=== PATIENT | male | born 1950 | race Caucasian/White ===

== ENCOUNTER 2017-05-01 12:20 | Emergency (ER) | payer OTHER ==
[2017-05-01 12:30] VITALS: BP 136/89
[2017-05-01] MEDS ORDERED: BUFFERED LIDOCAINE 10 ML SYRINGE ONE (13:09)
--- NOTE | 2017-05-01 13:15 | ED Physician Documentation ---
PD HPI UPPER EXT INJURY - Stated complaint Stated Complaint: L INDEX FINGER LAC - Chief complaint Chief Complaint: Ext Problem - History obtained from History obtained from: Patient - History of Present Illness Location: Left (66-year-old gentleman, up-to-date on tetanus, left-handed. Pinched his finger with a laceration on some wood just prior to arrival in a near fall at home. No other injuries.) Review of Systems Constitutional: reports: Reviewed and negative Throat: reports: Reviewed and negative Cardiac: reports: Reviewed and negative PD PAST MEDICAL HISTORY - Past Medical History Cardiovascular: Hypertension, High cholesterol GI: GERD : Retention Psych: Depression - Past Surgical History Past Surgical History: Yes - Present Medications Home Medications: Ambulatory Orders Medication Instructions Recorded Confirmed Gabapentin [Neurontin] 10 tab PO DAILY 08/24/15 05/01/17 Levothyroxine [Synthroid] 75 mcg PO DAILY 08/24/15 05/01/17 Lisinopril 1 tab PO DAILY 08/24/15 05/01/17 Pantoprazole [Protonix] 1 tab PO BID 08/24/15 05/01/17 Simvastatin 1 tab PO DAILY 08/24/15 05/01/17 Tamsulosin [Flomax] 1 tab PO DAILY 08/24/15 05/01/17 Venlafaxine [Effexor] 37.5 mg PO DAILY 08/24/15 05/01/17 predniSONE [Deltasone] 40 mg PO DAILY 5 Days 08/24/15 05/01/17 - Allergies Allergies/Adverse Reactions: Allergies Allergy/AdvReac Type Severity Reaction Status Date / Time codeine Allergy Rash Verified 08/24/15 10:40 ibuprofen Allergy Edema Verified 08/24/15 10:40 - Social History Does the pt smoke?: No Smoking Status: Never smoker Does the pt drink ETOH?: Yes Does the pt have substance abuse?: No - Immunizations Immunizations are current?: Yes PD ED PE NORMAL - Vitals Vital signs reviewed: Yes - General General: Alert and oriented X 3, No acute distress - Neck Neck: Supple, no meningeal sign, No bony TTP - Extremities Extremities: Other (1.5 cm semicircular laceration on the radial side of the left second digit at the level of the DIP without underlying bony tenderness, limited range of motion, tendon injury, or neurovascular compromise.) - Neuro Neuro: Alert and oriented X 3, Normal speech - Psych Psych: Normal mood, Normal affect Results - Vitals Vitals: Vital Signs - 24 hr 05/01/17 12:28 Temperature 36.2 C L Heart Rate 74 Respiratory 16 Rate Blood Pressure 136/89 H O2 Saturation 96 Oxygen O2 Source Room air Procedures - Laceration (location) L 2nd finger Length in cm: 1.5 Wound type: Curved, Flap, Superficial, Into subcut fat Neurovascular status: Sensory intact, Motor intact, Vascular intact Anesthesia: Lidocaine 1%, With bicarb (digital block with excellent anesthesia) Wound Preparation: Irrigated copiously NS Skin layer closure: Nylon, Interrupted, Size #-0 - enter number (5-0), Sutures - enter # (5) Other: Patient tolerated well, Tetanus UTD Complexity: Simple Departure - Departure Disposition: 01 Home, Self Care Clinical Impression: Finger laceration Qualifiers: Encounter type: initial encounter Qualified Code(s): S61.219A - Laceration without foreign body of unspecified finger without damage to nail, initial encounter Condition: Good Record reviewed to determine appropriate education?: Yes Instructions: ED Laceration Hand Comments: Wash the wound briefly but in general keep it dry and covered. Come back for any signs of infection which would include: Redness, swelling, drainage, increased pain, or fevers. Followup with your doctor in 10-14 days for suture removal. Your blood pressure was elevated today on check in to the emergency department. This does not mean that you have hypertension, it is a common phenomenon to check into the emergency department and have elevated blood pressure. I recommend that you see your primary care physician within the week to have it rechecked when you're feeling better.
== END 2017-05-01 13:45 | disposition home or self-care (01) ==
LOC: ED 12:20
DX: S61.211A Laceration without foreign body of left index finger without damage to nail, initial encounter (principal); W45.8XXA Other foreign body or object entering through skin, initial encounter; Y92.009 Unspecified place in unspecified non-institutional (private) residence as the place of occurrence of the external cause; I10 Essential (primary) hypertension
CPT/HCPCS: 12001; 99282; 99283

== ENCOUNTER 2018-01-28 11:31 | Emergency (ER) | payer OTHER ==
--- NOTE | 2018-01-28 12:38 | ED Physician Documentation ---
History of Present Illness - Stated complaint Stated Complaint: RT WRIST LAC/LT ANKLE PX/FELL OFF LADDER - Chief complaint Chief Complaint: Ext Problem - History obtained from History obtained from: Patient - History of Present Illness Timing: Today Improved by: rest Worsened by: movement - Additonal information Additional information: Patient is a 67 yo M with a history of vertigo, was on a ladder today, felt vertiginous and fell off the ladder. Landed on L ankle and rolled onto the R side. Complains of L ankle pain. no LOC. no head injury. no neck or back pain. he also has a laceration to the right wrist. Mild discomfort to the right wrist as well. He also has an abrasion to the left elbow. Review of Systems Ten Systems: 10 systems reviewed and negative Constitutional: denies: Fever, Chills Ears: denies: Ear pain Nose: denies: Rhinorrhea / runny nose, Congestion Throat: denies: Sore throat Cardiac: denies: Chest pain / pressure Respiratory: denies: Cough GI: denies: Abdominal Pain, Nausea, Vomiting, Diarrhea Skin: denies: Rash Musculoskeletal: denies: Neck pain, Back pain Neurologic: denies: Focal weakness, Numbness, Headache PD PAST MEDICAL HISTORY - Past Medical History Past Medical History: Yes Cardiovascular: Hypertension, High cholesterol GI: GERD : Retention Psych: Depression - Past Surgical History Past Surgical History: Yes - Present Medications Home Medications: Ambulatory Orders Medication Instructions Recorded Confirmed Gabapentin [Neurontin] 10 tab PO DAILY 08/24/15 05/01/17 Levothyroxine [Synthroid] 75 mcg PO DAILY 08/24/15 05/01/17 Lisinopril 1 tab PO DAILY 08/24/15 05/01/17 Pantoprazole [Protonix] 1 tab PO BID 08/24/15 05/01/17 Simvastatin 1 tab PO DAILY 08/24/15 05/01/17 Tamsulosin [Flomax] 1 tab PO DAILY 08/24/15 05/01/17 Venlafaxine [Effexor] 37.5 mg PO DAILY 08/24/15 05/01/17 predniSONE [Deltasone] 40 mg PO DAILY 5 Days tablet 08/24/15 05/01/17 Oxycodone HCl/Acetaminophen 1 - 2 each PO Q6H PRN #20 tablet 01/28/18 [Percocet 5-325 mg Tablet] - Allergies Allergies/Adverse Reactions: Allergies Allergy/AdvReac Type Severity Reaction Status Date / Time codeine Allergy Rash Verified 08/24/15 10:40 ibuprofen Allergy Edema Verified 08/24/15 10:40 - Social History Does the pt smoke?: No Smoking Status: Never smoker Does the pt drink ETOH?: Yes Does the pt have substance abuse?: No - Immunizations Immunizations are current?: Yes Immunizations: TDAP current <10years PD ED PE NORMAL - Vitals Vital signs reviewed: Yes - General General: Alert and oriented X 3, No acute distress - HEENT HEENT: PERRL, Ears normal, Moist mucous membranes, Pharynx benign - Neck Neck: Supple, no meningeal sign, No bony TTP - Cardiac Cardiac: RRR, Strong equal pulses - Respiratory Respiratory: No respiratory distress, Clear bilaterally - Abdomen Abdomen: Soft, Non tender - Back Back: No CVA TTP, No spinal TTP - Derm Derm: Warm and dry - Extremities Extremities: Other (L ankle - mild STS, TTP over the lateral malleolus. NVI. abrasion present on the L elbow. no bony tenderness. R wrist, volar aspect, radial side, 2cm linear. tendon intact. NVI. 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 If there is snuff box tenderness, or clinical suspicion of radiographically occult scaphoid fracture, immobilization with repeat radiograph in 7-10 days, or alternatively MR, is recommended. ) L ankle xray Radiology: Prelim report reviewed, EMP read contemporaneously, See rad report ( Acute nondisplaced fractures of the distal tibia and fibula, which appears mildly comminuted. Probable acute nondisplaced fracture of the talus. CT may be helpful for further evaluation. ) Procedures - Laceration (location) R wrist Length in cm: 2 Wound type: Linear, Into subcut fat, Clean Neurovascular status: Sensory intact, Motor intact, Vascular intact Tendon involvement: Tendon intact Anesthesia: Lidocaine 2% with epi Wound Preparation: Irrigated copiously NS, Wound explored, To the base Skin layer closure: Nylon, Interrupted, Size #-0 - enter number (4) Other: Patient tolerated well, No complications Complexity: Simple - Splint (location) L ankle Splint applied by: Physician, Nurse, Tech Type of splint: Fiberglass, Short leg, Posterior, Stirrup Other: Patient tolerated well, No complications, Neurovascular intact, Crutches provided PD MEDICAL DECISION MAKING - ED course Complexity details: reviewed results, re-evaluated patient, considered differential, d/w patient, d/w family ED course: Patient is a 67-year-old male who presents to the emergency department after a fall off of a ladder today. Found to have nondisplaced fractures of the left distal tibia and fibula. Placed in a short leg posterior splint with stirrup. Given crutches. Also has a laceration to the volar aspect of the right wrist. This was repaired. Tolerated well. Warnings of infection and instructions on wound care given at bedside. Also counseled on how to minimize scarring. Patient has no evidence of intracranial hemorrhage or skull fracture that required repair. No apparent cervical spine injury. No tenderness over the thoracic or lumbar spine. Patient counseled regarding signs and symptoms for which I believe and urgent re-evaluation would be necessary. Patient with good understanding of and agreement to plan and is comfortable going home at this time This document was made in part using voice recognition software. While efforts are made to proofread this document, sound alike and grammatical errors may occur. Departure - Departure Disposition: 01 Home, Self Care Clinical Impression: Wrist laceration Qualifiers: Encounter type: initial encounter Laterality: right Qualified Code(s): S61.511A - Laceration without foreign body of right wrist, initial encounter Tibia/fibula fracture Qualifiers: Encounter type: initial encounter Fracture type: closed Laterality: left Qualified Code(s): S82.202A - Unspecified fracture of shaft of left tibia, initial encounter for closed fracture Fracture, talus closed Qualifiers: Encounter type: initial encounter Talus location: unspecified portion of talus Fracture alignment: nondisplaced Laterality: left Qualified Code(s): S92.102A - Unspecified fracture of left talus, initial encounter for closed fracture Condition: Good Instructions: ED Fx Lower Ext, ED Laceration All Follow-Up: Zaid Stringer MD [Primary Care Provider] - [facility] [Provider Group] - Within 1 week Prescriptions: Oxycodone HCl/Acetaminophen [Percocet 5-325 mg Tablet] 1 - 2 each PO Q6H PRN # 20 tablet PRN Reason: pain Comments: Return if you worsen. Keep the splint on until you see orthopedics. The sutures should be removed in 10-14 days with your doctor. Do not drink alcohol or drive while on narcotic pain medicine. Note that many narcotic pain relievers also contain tylenol/acetaminophen. Please ensure that your total dose of acetaminophen from all sources does not exceed 3 grams (3000mg) per day. You may constipated on this medication, take a stool softener such as "Colace" twice a day while you are on it. Also recommend a [id number]-sxscisl laxative such as senna or MiraLAX any day that you do not have a bowel movement. If you received narcotic pain medication in the emergency department, do not drive or operate machinery for the next 24 hours. Discharge Date/Time: 01/28/18 15:05
[2018-01-28] MEDS ORDERED: LIDOCAINE 2%-EPI 1:100000 20 ML MDV SUBQ STA (12:51)
[2018-01-28] MEDS ORDERED: MORPHINE 2 MG/ML CARPUJECT IM STA (12:52)
[2018-01-28] MEDS ORDERED: HYDROmorphone 1 MG/ML SYRINGE IM STA (13:48)
--- NOTE | 2018-01-28 14:00 | XRAY Report ---
EXAM: LEFT ANKLE RADIOGRAPHY EXAM DATE: 01/28/2018 01:28 PM. CLINICAL HISTORY: L ankle pain s/p fall. COMPARISON: None. TECHNIQUE: 3 views. FINDINGS: Bones: Acute nondisplaced fracture of the distal tibia which appears mildly comminuted with most cons picuous fracture plane coronally oriented at the anterior aspect of the tibial plafond. There is a no ndisplaced mildly comminuted fracture of the distal fibula at the level of the syndesmosis. There is linear lucency through the talar dome and body suspicious for nondisplaced fracture. Joints: Normal. No effusion. No subluxations. The ankle mortise is normally aligned. Soft Tissues: Normal. No soft tissue swelling. IMPRESSION: 1. Acute nondisplaced fractures of the distal tibia and fibula, which appears mildly comminuted. 2. Probable acute nondisplaced fracture of the talus. 3. CT may be helpful for further evaluation. [facility] Referring Provider Line: [phone] SITE ID: [id number]
--- NOTE | 2018-01-28 14:02 | XRAY Report ---
EXAM: RIGHT WRIST RADIOGRAPHY EXAM DATE: 01/28/2018 01:31 PM. CLINICAL HISTORY: Fall off ladder, wrist pain. COMPARISON: None. TECHNIQUE: 4 views. FINDINGS: Bones: No fractures or bone lesions. Joints: Unremarkable. Soft Tissues: Unremarkable. IMPRESSION: 1. No acute osseous abnormality. If there is snuff box tenderness, or clinical suspicion of radiographically occult scaphoid fracture, immobilization with repeat radiograph in 7-10 days, or alternatively MR, is recommended. [facility] Referring Provider Line: [phone] SITE ID: [id number]
[2018-01-28] MEDS ORDERED: GABAPENTIN 100 MG CAPSULE PO STA (14:19)
[2018-01-28 14:53] VITALS: BP 154/98
[2018-01-28] MEDS ORDERED: BACITRACIN OINT TOP ONE (15:03)
== END 2018-01-28 15:05 | disposition home or self-care (01) ==
LOC: ED 11:31
DX: S61.511A Laceration without foreign body of right wrist, initial encounter (principal); S82.202A Unspecified fracture of shaft of left tibia, initial encounter for closed fracture; S92.102A Unspecified fracture of left talus, initial encounter for closed fracture; W11.XXXA Fall on and from ladder, initial encounter; I10 Essential (primary) hypertension; E78.00 Pure hypercholesterolemia, unspecified
CPT/HCPCS: 12001; 29515; 73110; 73610; 96372; 99283; 99284; A9270; J1170

== ENCOUNTER 2021-06-11 09:20 | Inpatient (IN) | payer OTHER ==
[2021-06-11] MEDS ORDERED: HYDROmorphone 1 MG/ML CARPUJECT IVP STA ×2 (09:52→14:05)
[2021-06-11] MEDS ORDERED: ONDANSETRON 4 MG/2 ML VIAL IVP STA (09:52)
--- NOTE | 2021-06-11 09:55 | ED Physician Documentation ---
PD HPI Fall - Stated complaint Stated Complaint: LT SIDE PX - History obtained from History obtained from: Patient, Family - History of Present Illness Mechanism of injury: Lost balance Fall distance: Standing position Where injury occurred: Home Timing - onset: Last night Injury(ies) location: Chest Quality of pain: Pain Associated symptoms: Other (pain with diaphoresis). No: LOC, AMS, Amnesia, Seizures, Ear drainage, Nasal drainage, Neck pain, Weakness, Paresthesias, Dyspnea, Nausea / vomiting, Hematemesis, Abdominal distension Symptoms improve with: Rest, Meds Worsens with: Movement, Palpation Contributing factors: No: Anticoagulated, Intoxicated Similar symptoms before: Has not had sx before Recently seen: Not recently seen - Additional information Additional information: Previously well 71-year-old male was in his yard yesterday when he lost his footing and fell onto his left side. He has injured his back in the left chest wall and he is feeling ribs clicking and moving. He has severe pain and he was able to get some relief with some Tylenol earlier which is now worn off. He does not take ibuprofen as it causes his face to swell. He indicates that he was not otherwise ill prior to this incident. Review of Systems Constitutional: reports: Sweats. denies: Fever Eyes: denies: Decreased vision Ears: denies: Ear pain Nose: denies: Congestion Throat: denies: Sore throat Cardiac: reports: Chest pain / pressure. denies: Palpitations, Pedal edema, Calf pain Respiratory: reports: Dyspnea. denies: Cough, Wheezing GI: denies: Abdominal Pain, Nausea, Vomiting : denies: Dysuria, Hesitancy Skin: denies: Rash Musculoskeletal: reports: Back pain. denies: Neck pain, Extremity pain Neurologic: denies: Generalized weakness, Focal weakness, Numbness, Difficulty speaking, Near syncope PD PAST MEDICAL HISTORY - Past Medical History Cardiovascular: Hypertension, High cholesterol GI: GERD : Retention Psych: Depression - Past Surgical History Past Surgical History: Yes - Present Medications Home Medications: Ambulatory Orders Medication Instructions Recorded Confirmed Gabapentin [Neurontin] 10 tab PO DAILY 08/24/15 06/11/21 Levothyroxine [Synthroid] 75 mcg PO DAILY 08/24/15 06/11/21 Pantoprazole [Protonix] 1 tab PO BID 08/24/15 06/11/21 Simvastatin 1 tab PO DAILY 08/24/15 06/11/21 Tamsulosin [Flomax] 1 tab PO DAILY 08/24/15 06/11/21 lisinopriL [Lisinopril] 1 tab PO DAILY 08/24/15 06/11/21 Sildenafil Citrate 100 mg PO DAILY PRN 06/11/21 06/11/21 - Allergies Allergies/Adverse Reactions: Allergies Allergy/AdvReac Type Severity Reaction Status Date / Time codeine Allergy Rash Verified 06/11/21 10:29 ibuprofen Allergy Edema Verified 06/11/21 10:29 - Social History Does the pt smoke?: No Smoking Status: Never smoker Does the pt drink ETOH?: Yes Does the pt have substance abuse?: No - Immunizations Immunizations are current?: Yes Immunizations: TDAP current <10years PD ED PE NORMAL - Vitals Vital signs reviewed: Yes - General General: Alert and oriented X 3, Well developed/nourished, Other (71-year-old male appears to be in acute pain he is diaphoretic and short tempered) - HEENT HEENT: Atraumatic, PERRL, EOMI - Neck Neck: Supple, no meningeal sign, No bony TTP - Cardiac Cardiac: RRR, No murmur - Respiratory Respiratory: No respiratory distress, Clear bilaterally, Other (General tenderness to the posterior aspect of the chest wall on the left side to the lower one third of the chest.) - Abdomen Abdomen: Soft, Non tender - Back Back: No CVA TTP, No spinal TTP - Derm Derm: Normal color, No rash - Extremities Extremities: No deformity, No edema - Neuro Neuro: Alert and oriented X 3, 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, No motor deficit, Normal speech Eye Opening: Spontaneous Motor: Obeys Commands Verbal: Oriented GCS Score: 15 - Psych Psych: Other (mood is painful affect is angry) Results - Vitals Vitals: Vital Signs - 24 hr 06/11/21 06/11/21 06/11/21 09:41 10:00 12:39 Temperature 36 C L 36.4 C L Heart Rate 68 54 L 67 Respiratory 24 20 17 Rate Blood Pressure 132/114 H 155/111 H 136/84 H O2 Saturation 100 99 100 Oxygen O2 Source Room air - Labs Labs: Laboratory Tests 07/15/21 07/15/21 07/15/21 10:03 10:03 13:27 WBC 13.8 H RBC 5.03 Hgb 15.4 Hct 45.2 MCV 89.9 MCH 30.6 MCHC 34.1 RDW 14.3 Plt Count 242 MPV 9.0 Neut # (Auto) 8.4 H Lymph # (Auto) 3.8 H [place] # (Auto) 1.2 H Eos # (Auto) 0.2 Baso # (Auto) 0.1 Absolute Nucleated RBC 0.00 Nucleated RBC % 0.0 Sodium 140 Potassium 3.6 Chloride 100 L Carbon Dioxide 27 Anion Gap 13.0 BUN 13 Creatinine 1.1 Estimated GFR (MDRD) 66 L Glucose 117 H Calcium 9.8 Total Bilirubin 1.2 H AST 30 ALT 20 Alkaline Phosphatase 74 Total Protein 8.1 Albumin 5.0 Globulin 3.1 Albumin/Globulin Ratio 1.6 Lipase 23 Nasal Adenovirus (PCR) NOT DETECTED Nasal B. parapertussis DNA (PCR) NOT DETECTED Nasal Coronavir 229E PCR NOT DETECTED Nasal Coronavir HKU1 PCR NOT DETECTED Nasal Coronavir NL63 PCR NOT DETECTED Nasal Coronavir OC43 PCR NOT DETECTED Nasal Enterovir/Rhinovir PCR NOT DETECTED Nasal Influenza B PCR NOT DETECTED Nasal Influenza A PCR NOT DETECTED Nasal Parainfluen 1 PCR NOT DETECTED Nasal Parainfluen 2 PCR NOT DETECTED Nasal Parainfluen 3 PCR NOT DETECTED Nasal Parainfluen 4 PCR NOT DETECTED Nasal RSV (PCR) NOT DETECTED Nasal B.pertussis DNA PCR NOT DETECTED Nasal C.pneumoniae (PCR) NOT DETECTED Didier Human Metapneumo PCR NOT DETECTED Nasal M.pneumoniae (PCR) NOT DETECTED Nasal SARS-CoV-2 (PCR) NOT DETECTED - Rads (name of study) chest Radiology: EMP read indepedently (fractures of #8 and #9 on the left. ) Chest CT w Radiology: Prelim report reviewed (Impression: 1. Mildly displaced left rib fractures. No evidence of soft tissue abnormality within the chest.), EMP read indepedently, See rad report PD MEDICAL DECISION MAKING - ED course Complexity details: reviewed old records, reviewed results, re-evaluated patient, considered differential, d/w patient, d/w family ED course: 71-year-old male with a fall yesterday evening onto his left side has broken 2 ribs. He comes into the emergency department diaphoretic and in pain. He has marked improvement with use of Dilaudid and Zofran and he has intense spasms periodically and this is improved with use of some intravenous Valium. The surgeon is contacted for a patient in his 70s with 2 rib fractures. Departure - Departure Disposition: [address] [facility] DC/[place] Clinical Impression: Multiple rib fractures Qualifiers: Encounter type: initial encounter Fracture type: closed Laterality: left Qualified Code(s): S22.42XA - Multiple fractures of ribs, left side, initial encounter for closed fracture Condition: Stable Discharge Date/Time: 06/11/21 15:54
[2021-06-11 10:07] LABS: BASOPHILS # (AUTO) 0.1 10^3/uL (0.0-0.1); BASOPHILS % (AUTO) 0.5 %; EOSINOPHILS # (AUTO) 0.2 10^3/uL (0.0-0.7); EOSINOPHILS % (AUTO) 1.3 %; HCT - HEMATOCRIT 45.2 % (42.0-52.0); HGB - HEMOGLOBIN 15.4 g/dL (14.0-18.0); LYMPHOCYTES # (AUTO) 3.8 10^3/uL (1.5-3.5); LYMPHOCYTES % (AUTO) 27.8 %; MEAN CORPUSCULAR HEMOGLOBIN 30.6 pg (27.0-31.0); MEAN CORPUSCULAR HGB CONC 34.1 g/dL (32.0-36.0); MEAN CORPUSCULAR VOLUME 89.9 fL (80.0-94.0); MONOCYTES # (AUTO) 1.2 10^3/uL (0.0-1.0); MONOCYTES % (AUTO) 8.8 %; NEUTROPHILS # (AUTO) 8.4 10^3/uL (1.5-6.6); PLT - PLATELET COUNT 242 10^3/uL (130-450); RED BLOOD COUNT 5.03 10^6/uL (4.70-6.10); RED CELL DISTRIBUTION WIDTH 14.3 % (12.0-15.0); WHITE BLOOD COUNT 13.8 x10^3/uL (4.8-10.8)
[2021-06-11 10:20] LABS: ALBUMIN/GLOBULIN RATIO 1.6 (1.0-2.2); BILIRUBIN,TOTAL 1.2 mg/dL (0.2-1.0); CALCIUM 9.8 mg/dL (8.5-10.3); CREATININE 1.1 mg/dL (0.6-1.2); POTASSIUM 3.6 mmol/L (3.5-5.0); TOTAL PROTEIN 8.1 g/dL (6.7-8.2)
--- NOTE | 2021-06-11 10:53 | XRAY Report ---
PROCEDURE: Ribs w/PA Chest LT INDICATIONS: fall posterolateral pain TECHNIQUE: 3 views of the left ribs were acquired, along with a single view chest. COMPARISON: None FINDINGS: Surgical changes and devices: None. Bones and chest wall: No fractures or dislocations. No suspicious bony lesions. Overlying soft tis sues appear unremarkable. Lungs and pleura: No pleural effusions or pneumothorax. Lungs appear clear. Mediastinum: Mediastinal contours appear normal. Heart size is normal. IMPRESSION: No visualized acute fracture or dislocation. However, occult injury cannot be excluded. Recommend xavier rt interval imaging follow-up in 7-10 days as clinically indicated for additional evaluation. Reviewed by: Essence Hurtado MD on 06/11/2021 10:51 AM PDT Approved by: Essence Hurtado MD on 06/11/2021 10:51 AM PDT Station ID: [id number]
[2021-06-11] MEDS ORDERED: diazePAM INJ 5 MG/ML SYRINGE IVP STA (11:10)
[2021-06-11] MEDS ORDERED: IOVERSOL 320 100 ML VIAL IVP ONE ×2 (11:17→16:42)
--- NOTE | 2021-06-11 12:05 | CT Report ---
PROCEDURE: CHEST W INDICATIONS: Chest wall pain. CONTRAST: IV CONTRAST: Optiray 320 ml: 80 PO CONTRAST: *NO PO CONTRAST TECHNIQUE: After the administration of intravenous contrast, images were acquired from the pulmonary apices to t he posterior costophrenic angles. Multiplanar MIP reformats were acquired. For radiation dose reduc tion, the following was used: automated exposure control, adjustment of mA and/or kV according to pa tient size. COMPARISON: Chest x-ray dated 06/11/2021 FINDINGS: Image quality: Excellent. Lungs and pleura: No acute air space opacities. No pleural effusions or pneumothorax. Central and peripheral airways are patent and normal in caliber. Mediastinum: Heart size is normal. There is moderate calcification of the coronary vasculature. No pericardial effusion. No mediastinal or hilar adenopathy by size criteria. Thoracic aorta and centr al pulmonary arteries are normal in size. Esophagus is normal in caliber. No hiatal hernia. Bones and chest wall: Mildly displaced fractures of the left posterior lateral eighth, ninth, and 10t h ribs. No vertebral body compression fractures. No axillary or supraclavicular adenopathy by size c riteria. The thyroid is normal in size and there are no incidental findings.. Abdomen: Visualized upper abdominal solid organs appear normal. Upper abdominal bowel loops are nor mal in caliber. IMPRESSION: 1. Mildly displaced left rib fractures. 2. No evidence of soft tissue abnormality within the chest. CLINICAL RECOMMENDATION STATEMENTS: In patients <35 years with an ITN detected on CT, MRI, or extrathyroidal ultrasound, the Committee re commends further evaluation with dedicated thyroid ultrasound if the nodule is ?1 cm and has no suspi cious imaging features, and if the patient has normal life expectancy. In patients ?35 years with an ITN detected on CT, MRI, or extrathyroidal ultrasound, the Committee re commends further evaluation with dedicated thyroid ultrasound if the nodule is ?1.5 cm and has no akbar picious imaging features, and if the patient has normal life expectancy. (ACR, 2014) Reviewed by: Mario Vang MD on 06/11/2021 12:04 PM PDT Approved by: Mario Vang MD on 06/11/2021 12:04 PM PDT Station ID: [id number]
[2021-06-11] MEDS ORDERED: ZOLPIDEM 5 MG TABLET PO PRN (14:31)
[2021-06-11] MEDS ORDERED: PROCHLORPERAZINE 10 MG/2 ML VIAL IVP PRN (14:31)
[2021-06-11] MEDS ORDERED: ONDANSETRON 4 MG/2 ML VIAL IVP PRN (14:31)
[2021-06-11] MEDS ORDERED: SODIUM CHLORIDE FLUSH 0.9% 10 ML SYRINGE IVP PRN (14:31)
[2021-06-11 14:39] LABS: B. PARAPERTUSSIS- RESP PCR PAN NOT DETECTED; B. PERTUSSIS- RESP PCR PANEL NOT DETECTED; C. PNEUMONIAE- RESP PCR PANEL NOT DETECTED; CORONAVIRUS 229E-RESP PCR NOT DETECTED; CORONAVIRUS HKU1-RESP PCR NOT DETECTED; CORONAVIRUS NL63-RESP PCR NOT DETECTED; CORONAVIRUS OC43-RESP PCR NOT DETECTED; HUMAN METAPNEUMOVIRUS NOT DETECTED; INFLUENZA A- RESP PCR PANEL NOT DETECTED; INFLUENZA B - RESP PCR PANEL NOT DETECTED; M. PNEUMONIAE- RESP PCR PANEL NOT DETECTED; PARAINFLUENZA VIRUS 1 NOT DETECTED; PARAINFLUENZA VIRUS 2 NOT DETECTED; PARAINFLUENZA VIRUS 3 NOT DETECTED; PARAINFLUENZA VIRUS 4 NOT DETECTED; RHINOVIRUS/ENTEROVIRUS NOT DETECTED; RSV- RESP PCR PANEL NOT DETECTED; SARS-CoV-2 -RESP PCR PANEL NOT DETECTED
[2021-06-11] MEDS ORDERED: TAMSULOSIN 0.4 MG CAPSULE PO STA (14:39)
--- NOTE | 2021-06-11 14:46 | HISTORY & PHYSICAL EXAMINATION ---
Chief Complaint - Chief Complaint Chief Complaint: left posterior rib pain History of Present Illness - Admitted From Admitted From:: E - History Obtained From Records Reviewed: yes History obtained from: pt Exam Limitations: none - History of Present Illness HPI Comment/Other: Fall yesterday. Not doing well at home do to posterior left rib pain/ fractures. He can feel movement with activity and coughing History - Past Medical History Cardiovascular: reports: Hypertension, High cholesterol Endocrine/Autoimmune: reports: HyPOthyroidism GI: reports: GERD : reports: Retention Psych: reports: Depression Meds/Allgy - Home Medications Home Medications: Ambulatory Orders Medication Instructions Recorded Confirmed Gabapentin [Neurontin] 10 tab PO DAILY 08/24/15 06/11/21 Levothyroxine [Synthroid] 75 mcg PO DAILY 08/24/15 06/11/21 Pantoprazole [Protonix] 1 tab PO BID 08/24/15 06/11/21 Simvastatin 1 tab PO DAILY 08/24/15 06/11/21 Tamsulosin [Flomax] 1 tab PO DAILY 08/24/15 06/11/21 lisinopriL [Lisinopril] 1 tab PO DAILY 08/24/15 06/11/21 - Allergies Allergies/Adverse Reactions: Allergies Allergy/AdvReac Type Severity Reaction Status Date / Time codeine Allergy Rash Verified 06/11/21 10:29 ibuprofen Allergy Edema Verified 06/11/21 10:29 Review of Systems - Other Findings Other Findings: 10 pt ros as above otherwise unremarkable he has been opposed to vaccines for many years Exam - Vital Signs Reviewed Vital Signs: Yes Vital Signs: Vital Signs x48h Temp Pulse Resp BP Pulse Ox 06/11/21 12:39 36.4 C L 67 17 136/84 H 100 06/11/21 10:00 36 C L 54 L 20 155/111 H 99 06/11/21 09:41 68 24 132/114 H 100 - Physical Exam General Appearance: positive: Alert, Mild distress Eyes Bilateral: positive: PERRL, EOMI ENT: positive: No signs of dehydration Neck: positive: No JVD Respiratory: positive: No respiratory distress, Breath sounds nml, Other (poste rior left rib pain and tenderness) Cardiovascular: positive: Regular rate & rhythm Abdomen: positive: Non-tender, No distention Extremities: positive: Other (mild bruises. no fractues) Neurologic/Psychiatric: positive: Oriented x3 Conclusion/Plan - Problem List (1) Multiple rib fractures Conclusion/Plan: Not doing well at home. Admit for pain management and close observation. Qualifiers: Encounter type: initial encounter Fracture type: closed Laterality: left Qualified Code(s): S22.42XA - Multiple fractures of ribs, left side, initial encounter for closed fracture - Lab Results Fish Bones: 06/11/21 10:03 06/11/21 10:03
[2021-06-11] MEDS ORDERED: diazePAM 5 MG TABLET PO PRN (14:56)
[2021-06-11] MEDS: D5.45NS W/20 MEQ KCL 1,000 ML IV SCH (16:35)
[2021-06-11] MEDS: oxyCODONE 5 MG TABLET PO PRN ×2 (16:36→23:39)
[2021-06-11] MEDS: SODIUM CHLORIDE FLUSH 0.9% 10 ML SYRINGE IVP SCH ×2 (16:37→23:40)
[2021-06-11 17:11] LABS: BILIRUBIN,URINE NEGATIVE (NEGATIVE); GLUCOSE, URINE (UA) NEGATIVE (NEGATIVE); KETONES,URINE (UA) 15 mg/dL (NEGATIVE); LEUKOCYTE ESTERASE, URINE NEGATIVE (NEGATIVE); NITRITE,URINE NEGATIVE (NEGATIVE); OCCULT BLOOD,URINE SMALL (NEGATIVE); PH,URINE 7.5 PH (5.0-7.5); PROTEIN,URINE NEGATIVE (NEGATIVE); UROBILINOGEN,URINE 1 (NORMAL) E.U./dL (NORMAL)
[2021-06-11 17:14] LABS: BACTERIA,URINE Rare /HPF (None Seen); CLARITY,URINE CLEAR (CLEAR); RBC,URINE 0-5 /HPF (0-5); SQUAMOUS EPITHELIAL CELL,UR FEW Squamous (<= Few); WBC,URINE 0-3 /HPF (0-3)
[2021-06-11] MEDS ORDERED: GABAPENTIN 400 MG CAPSULE PO SCH (18:00)
[2021-06-11] MEDS: HYDROmorphone 0.5 MG/0.5 ML SYRINGE IVP PRN ×2 (20:23→22:33)
[2021-06-11] MEDS ORDERED: GABAPENTIN 100 MG CAPSULE PO SCH (21:00)
[2021-06-11] MEDS: GABAPENTIN 400 MG CAPSULE PO SCH (21:29)
[2021-06-11] MEDS: CYCLOBENZAPRINE 10 MG TABLET PO PRN (22:45)
[2021-06-12] MEDS: D5.45NS W/20 MEQ KCL 1,000 ML IV SCH ×3 (01:53→22:00)
[2021-06-12] MEDS: HYDROmorphone 0.5 MG/0.5 ML SYRINGE IVP PRN ×7 (01:56→21:51)
[2021-06-12] MEDS: oxyCODONE 5 MG TABLET PO PRN ×3 (05:12→19:47)
[2021-06-12] MEDS: GABAPENTIN 400 MG CAPSULE PO SCH ×3 (05:23→19:47)
[2021-06-12] MEDS: PANTOPRAZOLE 40 MG TABLET PO SCH (06:56)
[2021-06-12] MEDS: LEVOTHYROXINE 75 MCG TABLET PO SCH (06:56)
[2021-06-12] MEDS: lisinopriL 5 MG TABLET PO SCH (08:20)
[2021-06-12] MEDS: ENOXAPARIN 40 MG/0.4 ML SYRINGE SUBQ SCH (08:20)
[2021-06-12] MEDS: SODIUM CHLORIDE FLUSH 0.9% 10 ML SYRINGE IVP SCH ×2 (08:23→16:26)
[2021-06-12] MEDS: GABAPENTIN 300 MG CAPSULE PO SCH (11:38)
--- NOTE | 2021-06-12 12:07 | PROVIDER PROGRESS NOTE ---
Subjective - Prog Note Date Prog Note Date: 06/12/21 - Subjective Pt reports feeling: Improved (minimally improved. too painful to get out of bed or ambulate much) Objective - Vital Signs/Intake & Output Reviewed Vital Signs: Yes Vital Signs: Vital Signs x48h Temp Pulse Resp BP Pulse Ox 06/12/21 08:00 36.7 C 69 18 140/95 H 97 Intake & Output: Intake & Output 06/09/21 06/10/21 06/11/21 06/12/21 23:59 23:59 23:59 23:59 Intake Total 80 2125 Output Total 800 2000 Balance -720 125 - Objective General Appearance: positive: No acute distress, Alert Eyes Bilateral: positive: PERRL, EOMI ENT: positive: No signs of dehydration Neck: positive: No JVD Respiratory: positive: No respiratory distress Abdomen: positive: Non-tender, No distention Extremities: positive: Full ROM Neurologic/Psychiatric: positive: Oriented x3 - Lab Results Fish Bones: 06/11/21 10:03 06/11/21 10:03 Other Labs: Lab Results x24hrs 06/11/21 06/11/21 Range/Units 16:30 13:27 Urine Color YELLOW Urine Clarity CLEAR (CLEAR) Urine pH 7.5 (5.0-7.5) PH Ur Specific Reserve 1.010 (1.002-1.030) Urine Protein NEGATIVE (NEGATIVE) mg/dL Urine Glucose (UA) NEGATIVE (NEGATIVE) mg/dL Urine Ketones 15 H (NEGATIVE) mg/dL Urine Occult Blood SMALL H (NEGATIVE) Urine Nitrite NEGATIVE (NEGATIVE) Urine Bilirubin NEGATIVE (NEGATIVE) Urine Urobilinogen 1 (NORMAL) (NORMAL) E.U./dL Ur Leukocyte Esterase NEGATIVE (NEGATIVE) Urine RBC 0-5 (0-5) /HPF Urine WBC 0-3 (0-3) /HPF Ur Squamous Epith Cells FEW Squamous (<= Few) Urine Bacteria Rare (None Seen) /HPF Ur Microscopic Review INDICATED Urine Culture Comments NOT INDICATED Nasal Adenovirus (PCR) NOT DETECTED Nasal B. parapertussis DNA (PCR) NOT DETECTED Nasal Coronavir 229E PCR NOT DETECTED Nasal Coronavir HKU1 PCR NOT DETECTED Nasal Coronavir NL63 PCR NOT DETECTED Nasal Coronavir OC43 PCR NOT DETECTED Nasal Enterovir/Rhinovir PCR NOT DETECTED Nasal Influenza B PCR NOT DETECTED Nasal Influenza A PCR NOT DETECTED Nasal Parainfluen 1 PCR NOT DETECTED Nasal Parainfluen 2 PCR NOT DETECTED Nasal Parainfluen 3 PCR NOT DETECTED Nasal Parainfluen 4 PCR NOT DETECTED Nasal RSV (PCR) NOT DETECTED Nasal B.pertussis DNA PCR NOT DETECTED Nasal C.pneumoniae (PCR) NOT DETECTED Didier Human Metapneumo PCR NOT DETECTED Nasal M.pneumoniae (PCR) NOT DETECTED Nasal SARS-CoV-2 (PCR) NOT DETECTED Assessment/Plan - Problem List (1) Multiple rib fractures Impression: doing well from a pulmonary stand point. too painful to move much. plan home when pain improved enough to allow him to be able to ambulate safely, perhaps tomorrow Qualifiers: Encounter type: initial encounter Fracture type: closed Laterality: left Qualified Code(s): S22.42XA - Multiple fractures of ribs, left side, initial encounter for closed fracture
--- NOTE | 2021-06-12 14:02 | PHARMACY PROGRESS NOTE ---
- Best Possible Medication History Admit Date and Time: 06/11/21 1431 Processed by: Nursing Medication History completed: Yes Patient Interview: Completed (MED REC COMPLETED BY NURSING) As the person ultimately responsible for medication therapy, providers are able to order a medication from an existing home medication list in [facility] via the "Reconcile Routine" prior to Confirmation of that medication by home support worker. Such practice is discouraged except when the physician, in their clinical judgment, deems that a medical need exists for a medication without regard to previous use.
[2021-06-12] MEDS: CYCLOBENZAPRINE 10 MG TABLET PO PRN (22:02)
[2021-06-13] MEDS: HYDROmorphone 0.5 MG/0.5 ML SYRINGE IVP PRN ×5 (00:07→22:03)
[2021-06-13] MEDS: oxyCODONE 5 MG TABLET PO PRN ×2 (02:30→10:00)
[2021-06-13] MEDS: ACETAMINOPHEN 325 MG TABLET PO PRN ×2 (02:30→10:00)
[2021-06-13] MEDS: GABAPENTIN 400 MG CAPSULE PO SCH ×2 (07:09→19:15)
[2021-06-13] MEDS: LEVOTHYROXINE 75 MCG TABLET PO SCH (07:10)
[2021-06-13] MEDS: PANTOPRAZOLE 40 MG TABLET PO SCH (07:10)
[2021-06-13] MEDS: ENOXAPARIN 40 MG/0.4 ML SYRINGE SUBQ SCH (07:11)
[2021-06-13] MEDS: lisinopriL 5 MG TABLET PO SCH (07:11)
[2021-06-13] MEDS: SODIUM CHLORIDE FLUSH 0.9% 10 ML SYRINGE IVP SCH ×3 (07:19→16:02)
--- NOTE | 2021-06-13 11:34 | PROVIDER PROGRESS NOTE ---
Assessment/Plan - Problem List (1) Multiple rib fractures Qualifiers: Encounter type: subsequent encounter Fracture type: closed Laterality: left Qualified Code(s): S22.42XA - Multiple fractures of ribs, left side, initial encounter for closed fracture Assessment/Plan: Still has a great deal of rib pain with feeling of movement of fractured ribs. Will speak with anesthesia to see if rib block possible. (3) BPH (benign prostatic hyperplasia) Qualifiers: Lower urinary tract symptom presence: symptoms absent Qualified Code(s): N40.0 - Benign prostatic hyperplasia without lower urinary tract symptoms Assessment/Plan: Patient normally takes Flomax 0.4 mg daily. He took his own medication from home today. - Current Meds Current Meds: Current Medications Generic Name Dose Route Start Last Admin Trade Name Freq PRN Reason Stop Dose Admin Acetaminophen 650 mg 06/11/21 14:31 06/13/21 10:00 Acetaminophen 325 Mg Tablet PO 650 mg Q4HR PRN Administration Pain 1 to 4 Cyclobenzaprine HCl 10 mg 06/11/21 22:29 06/12/21 22:02 Cyclobenzaprine 10 Mg Tablet PO 10 mg TID PRN Administration Spasms Enoxaparin Sodium 40 mg 06/12/21 09:00 06/13/21 07:11 Enoxaparin 40 Mg/0.4 Ml Syringe SUBQ 40 mg DAILY LEON Administration Gabapentin 1,200 mg 06/12/21 06:00 06/13/21 07:09 Gabapentin 400 Mg Capsule PO 1,200 mg QDAC LEON Administration Gabapentin 600 mg 06/12/21 12:00 06/12/21 11:38 Gabapentin 300 Mg Capsule PO 600 mg QDLUNCH LEON Administration Gabapentin 1,200 mg 06/11/21 21:00 06/12/21 19:47 Gabapentin 400 Mg Capsule PO 1,200 mg 1800 LEON Administration Hydromorphone HCl 0.5 mg 06/11/21 14:31 06/13/21 07:02 Hydromorphone 0.5 Mg/0.5 Ml Syringe IVP 0.5 mg Q2H PRN Administration Pain 8 to 10 Potassium Chloride/Dextrose/Sod Cl 1,000 mls @ 100 mls/hr 06/11/21 17:00 06/12/21 22:00 D5.45ns W/20 Meq Kcl IV 100 mls/hr .Q10H LEON Administration Levothyroxine Sodium 75 mcg 06/12/21 07:00 06/13/21 07:10 Levothyroxine 75 Mcg Tablet PO 75 mcg QDAC LEON Administration Lisinopril 10 mg 06/12/21 09:00 06/13/21 07:11 Lisinopril 5 Mg Tablet PO 10 mg DAILY LEON Administration Ondansetron HCl 4 mg 06/11/21 14:31 06/11/21 20:23 Ondansetron 4 Mg/2 Ml Vial IVP 4 mg Q6HR PRN Administration Nausea / Vomiting Oxycodone HCl 5 mg 06/11/21 14:31 06/13/21 10:00 Oxycodone 5 Mg Tablet PO 5 mg Q4HR PRN Administration Pain 5 to 7 Pantoprazole Sodium 40 mg 06/12/21 07:00 06/13/21 07:10 Pantoprazole 40 Mg Tablet PO 40 mg QDAC LEON Administration Sodium Chloride 10 ml 06/11/21 17:00 06/13/21 07:19 Sodium Chloride Flush 0.9% 10 Ml Syringe IVP 10 ml 0100,0900,1700 LEON Administration - Lab Result Fish Bone Diagrams: 06/11/21 10:03 06/11/21 10:03 - Additional Planning My Orders: My Active Orders 06/13/21 11:28 Admit [Admit \ Transfer \ Status] [RC] .ONCE 06/14/21 09:00 Tamsulosin [Flomax] 0.4 mg PO DAILY Objective Vital Signs: Vital Signs - 24 hr 06/12/21 06/12/21 06/12/21 16:00 17:59 21:04 Temperature 36.5 C 37.2 C Heart Rate [ 71 66 Radial] Respiratory 18 18 Rate Blood Pressure 166/100 H 143/92 H 163/90 H [Right Brachial artery] O2 Saturation 97 99 06/12/21 06/13/21 23:57 06:55 Temperature 37.3 C 37 C Heart Rate [ 71 61 Radial] Respiratory 18 16 Rate Blood Pressure 126/91 H 133/87 H [Right Brachial artery] O2 Saturation 95 94 Oxygen O2 Source Room air I&O (Last 24 Hrs): Intake and Output Totals x24h 06/11/21 06/12/21 06/13/21 23:59 23:59 23:59 Intake Total 80 4685 360 Output Total 800 4625 600 Balance -720 60 -240 - Results Results: Laboratory Results WBC 13.8 x10^3/uL (4.8-10.8) H 06/11/21 10:03 RBC 5.03 10^6/uL (4.70-6.10) 06/11/21 10:03 Hgb 15.4 g/dL (14.0-18.0) 06/11/21 10:03 Hct 45.2 % (42.0-52.0) 06/11/21 10:03 MCV 89.9 fL (80.0-94.0) 06/11/21 10:03 MCH 30.6 pg (27.0-31.0) 06/11/21 10:03 MCHC 34.1 g/dL (32.0-36.0) 06/11/21 10:03 RDW 14.3 % (12.0-15.0) 06/11/21 10:03 Plt Count 242 10^3/uL (130-450) 06/11/21 10:03 MPV 9.0 fL (7.4-11.4) 06/11/21 10:03 Neut # (Auto) 8.4 10^3/uL (1.5-6.6) H 06/11/21 10:03 Lymph # (Auto) 3.8 10^3/uL (1.5-3.5) H 06/11/21 10:03 Harney # (Auto) 1.2 10^3/uL (0.0-1.0) H 06/11/21 10:03 Eos # (Auto) 0.2 10^3/uL (0.0-0.7) 06/11/21 10:03 Baso # (Auto) 0.1 10^3/uL (0.0-0.1) 06/11/21 10:03 Absolute Nucleated RBC 0.00 x10^3/uL 06/11/21 10:03 Nucleated RBC % 0.0 /100WBC 06/11/21 10:03 Sodium 140 mmol/L (135-145) 06/11/21 10:03 Potassium 3.6 mmol/L (3.5-5.0) 06/11/21 10:03 Chloride 100 mmol/L (101-111) L 06/11/21 10:03 Carbon Dioxide 27 mmol/L (21-32) 06/11/21 10:03 Anion Gap 13.0 (6-13) 06/11/21 10:03 BUN 13 mg/dL (6-20) 06/11/21 10:03 Creatinine 1.1 mg/dL (0.6-1.2) 06/11/21 10:03 Estimated GFR (MDRD) 66 (>89) L 06/11/21 10:03 Glucose 117 mg/dL (70-100) H 06/11/21 10:03 Calcium 9.8 mg/dL (8.5-10.3) 06/11/21 10:03 Total Bilirubin 1.2 mg/dL (0.2-1.0) H 06/11/21 10:03 AST 30 IU/L (10-42) 06/11/21 10:03 ALT 20 IU/L (10-60) 06/11/21 10:03 Alkaline Phosphatase 74 IU/L (42-121) 06/11/21 10:03 Total Protein 8.1 g/dL (6.7-8.2) 06/11/21 10:03 Albumin 5.0 g/dL (3.2-5.5) 06/11/21 10:03 Globulin 3.1 g/dL (2.1-4.2) 06/11/21 10:03 Albumin/Globulin Ratio 1.6 (1.0-2.2) 06/11/21 10:03 Lipase 23 U/L (22-51) 06/11/21 10:03 Urine Color YELLOW 06/11/21 16:30 Urine Clarity CLEAR (CLEAR) 06/11/21 16:30 Urine pH 7.5 PH (5.0-7.5) 06/11/21 16:30 Ur Specific Burke 1.010 (1.002-1.030) 06/11/21 16:30 Urine Protein NEGATIVE mg/dL (NEGATIVE) 06/11/21 16:30 Urine Glucose (UA) NEGATIVE mg/dL (NEGATIVE) 06/11/21 16:30 Urine Ketones 15 mg/dL (NEGATIVE) H 06/11/21 16:30 Urine Occult Blood SMALL (NEGATIVE) H 06/11/21 16:30 Urine Nitrite NEGATIVE (NEGATIVE) 06/11/21 16:30 Urine Bilirubin NEGATIVE (NEGATIVE) 06/11/21 16:30 Urine Urobilinogen 1 (NORMAL) E.U./dL (NORMAL) 06/11/21 16:30 Ur Leukocyte Esterase NEGATIVE (NEGATIVE) 06/11/21 16:30 Urine RBC 0-5 /HPF (0-5) 06/11/21 16:30 Urine WBC 0-3 /HPF (0-3) 06/11/21 16:30 Ur Squamous Epith Cells FEW Squamous (<= Few) 06/11/21 16:30 Urine Bacteria Rare /HPF (None Seen) 06/11/21 16:30 Ur Microscopic Review INDICATED 06/11/21 16:30 Urine Culture Comments NOT INDICATED 06/11/21 16:30 Nasal Adenovirus (PCR) NOT DETECTED 06/11/21 13:27 Nasal B. parapertussis DNA (PCR) NOT DETECTED 06/11/21 13:27 Nasal Coronavir 229E PCR NOT DETECTED 06/11/21 13:27 Nasal Coronavir HKU1 PCR NOT DETECTED 06/11/21 13:27 Nasal Coronavir NL63 PCR NOT DETECTED 06/11/21 13:27 Nasal Coronavir OC43 PCR NOT DETECTED 06/11/21 13:27 Nasal Enterovir/Rhinovir PCR NOT DETECTED 06/11/21 13:27 Nasal Influenza B PCR NOT DETECTED 06/11/21 13:27 Nasal Influenza A PCR NOT DETECTED 06/11/21 13:27 Nasal Parainfluen 1 PCR NOT DETECTED 06/11/21 13:27 Nasal Parainfluen 2 PCR NOT DETECTED 06/11/21 13:27 Nasal Parainfluen 3 PCR NOT DETECTED 06/11/21 13:27 Nasal Parainfluen 4 PCR NOT DETECTED 06/11/21 13:27 Nasal RSV (PCR) NOT DETECTED 06/11/21 13:27 Nasal B.pertussis DNA PCR NOT DETECTED 06/11/21 13:27 Nasal C.pneumoniae (PCR) NOT DETECTED 06/11/21 13:27 Didier Human Metapneumo PCR NOT DETECTED 06/11/21 13:27 Nasal M.pneumoniae (PCR) NOT DETECTED 06/11/21 13:27 Nasal SARS-CoV-2 (PCR) NOT DETECTED 06/11/21 13:27 ABX Reporting Has patient been on IV antibiotics over the past 48 hours?: No
[2021-06-13] MEDS: D5.45NS W/20 MEQ KCL 1,000 ML IV SCH ×2 (12:28→22:02)
[2021-06-13] MEDS: GABAPENTIN 300 MG CAPSULE PO SCH (12:36)
[2021-06-13] MEDS ORDERED: ROPIVACAINE 0.5% PF 20 ML AMPULE ONE (13:03)
[2021-06-13] MEDS: CYCLOBENZAPRINE 10 MG TABLET PO PRN (15:53)
[2021-06-14] MEDS: oxyCODONE 5 MG TABLET PO PRN ×3 (00:23→13:28)
[2021-06-14] MEDS: ACETAMINOPHEN 325 MG TABLET PO PRN ×2 (00:23→05:21)
[2021-06-14] MEDS: CYCLOBENZAPRINE 10 MG TABLET PO PRN ×2 (01:22→13:28)
[2021-06-14] MEDS: SODIUM CHLORIDE FLUSH 0.9% 10 ML SYRINGE IVP SCH ×2 (01:28→08:29)
[2021-06-14] MEDS: PANTOPRAZOLE 40 MG TABLET PO SCH (06:11)
[2021-06-14] MEDS: GABAPENTIN 400 MG CAPSULE PO SCH (06:11)
[2021-06-14] MEDS: LEVOTHYROXINE 75 MCG TABLET PO SCH (06:11)
[2021-06-14] MEDS: D5.45NS W/20 MEQ KCL 1,000 ML IV SCH (07:41)
[2021-06-14] MEDS: ENOXAPARIN 40 MG/0.4 ML SYRINGE SUBQ SCH (08:28)
[2021-06-14] MEDS: lisinopriL 5 MG TABLET PO SCH (08:29)
[2021-06-14] MEDS ORDERED: polyethylene glycoL 3350 17 GM PACKET PO SCH (09:00)
[2021-06-14] MEDS ORDERED: TAMSULOSIN 0.4 MG CAPSULE PO SCH (09:00)
--- NOTE | 2021-06-14 09:59 | Discharge Plan ---
Discharge Plan Problem Reviewed?: Yes Disposition: Home, Self Care Condition: Good Prescriptions: Cyclobenzaprine [Flexeril] 10 mg PO TID PRN 6 Days #20 tablet PRN Reason: Spasms oxyCODONE/ACET 5/325 [Percocet 5 mg/325 mg] 1 each PO Q4-6H PRN #42 tablet PRN Reason: Pain Diet: Regular Activity Restrictions: No Restrictions Shower Restrictions: No Driving Restrictions: No Weight Bearing: Full Weight Plan of Treatment: pain management for rib fractures Assessment: pain improved following fall and rib fractures Additional Instructions or Follow Up instructions: call the surgery office with any concerns. Follow up surgery office as needed [phone] No Smoking: If you smoke, Please STOP! Call for help. Follow-up with: Zaid Stringer MD [Primary Care Provider] -
--- NOTE | 2021-06-14 10:02 | DISCHARGE SUMMARY ---
"Discharge Summary Admit Date: 06/11/21 Discharge Date: 06/14/21 Discharging Provider: ross cabrera md Code Status: Attempt Resuscitation [facility] - DIAGNOSES Admission Diagnoses: left posterior rib fractures due to fall Discharge Diagnoses with Status of Each Condition: pain and ambulation improved at time of discharge. home in good condition - HPI History of Present Illness: Fall ground level while hiking 06/10/2021. Admitted 06/11/2021 with left posterior rib fractures for pain control. No other significant injuries - CONSULTS | PROCEDURES Consultations: anesthesia for nerve block Procedures: nerve block per anesthesia and pain management - HOSPITAL COURSE Hospital Course: Pain improved daily. Home in good condition 06/14/2021 - ALLERGIES Allergies/Adverse Reactions: Allergies Allergy/AdvReac Type Severity Reaction Status Date / Time codeine Allergy Rash Verified 06/11/21 10:29 ibuprofen Allergy Edema Verified 06/11/21 10:29 - MEDICATIONS Home Medications: Ambulatory Orders Medication Instructions Recorded Confirmed Gabapentin [Neurontin] 10 tab PO DAILY 08/24/15 06/11/21 Levothyroxine [Synthroid] 75 mcg PO DAILY 08/24/15 06/11/21 Pantoprazole [Protonix] 1 tab PO BID 08/24/15 06/11/21 Simvastatin 1 tab PO DAILY 08/24/15 06/11/21 Tamsulosin [Flomax] 1 tab PO DAILY 08/24/15 06/11/21 lisinopriL [Lisinopril] 1 tab PO DAILY 08/24/15 06/11/21 Sildenafil Citrate 100 mg PO DAILY PRN 06/11/21 06/11/21 Cyclobenzaprine [Flexeril] 10 mg PO TID PRN 6 Days #20 tablet 06/14/21 oxyCODONE/ACET 5/325 [Percocet 5 1 each PO Q4-6H PRN #42 tablet 06/14/21 mg/325 mg] - PHYSICAL EXAM AT DISCHARGE General Appearance: positive: No acute distress, Alert Eyes Bilateral: positive: PERRL, EOMI ENT: positive: No signs of dehydration Neck: positive: No JVD Respiratory: positive: No respiratory distress Abdomen: positive: Non-tender, No distention Extremities: positive: Full ROM Neurologic/Psychiatric: positive: Oriented x3 - LABS Result Diagrams: 06/11/21 10:03 06/11/21 10:03 - DIAGNOSTIC IMAGING Diagnostic Imaging Results: Final report reviewed - QUALITY (Female Hip Fx Only) Was patient sent home on osteoporosis medication?: No - FOLLOW UP Follow Up: surgery office as needed [phone]"
[2021-06-14] MEDS: GABAPENTIN 300 MG CAPSULE PO SCH (12:02)
[2021-06-14 13:51] VITALS: BP 170/98
== END 2021-06-14 13:50 | disposition home or self-care (01) | DRG 948 ==
LOC: ED 09:20 → MS2 14:31 → OBSVTOIN 06-13 11:28
PROVIDERS: ADMIT Surgery; ATTEND Surgery
DX: G89.11 Acute pain due to trauma (principal); S22.42XA Multiple fractures of ribs, left side, initial encounter for closed fracture; W01.0XXA Fall on same level from slipping, tripping and stumbling without subsequent striking against object, initial encounter; Y92.096 Garden or yard of other non-institutional residence as the place of occurrence of the external cause; I10 Essential (primary) hypertension; E03.9 Hypothyroidism, unspecified; E78.00 Pure hypercholesterolemia, unspecified; N40.0 Benign prostatic hyperplasia without lower urinary tract symptoms; Z20.822 Contact with and (suspected) exposure to COVID-19
CPT/HCPCS: 0202U; 36415; 71101; 71260; 80053; 81001; 83690; 85025; 96365; 96366; 96372; 96375; 96376; 99284; 99285; A9270; J1170; J1650; Q9967; 81003; 87086

== ENCOUNTER 2021-06-22 10:40 | Outpatient (CLI) | payer OTHER | END 2021-06-22 23:59 | disposition home or self-care (01) | LOC: COV 10:40 | PROVIDERS: ATTEND Ophthalmology | DX: Z01.812 Encounter for preprocedural laboratory examination (principal); H25.11 Age-related nuclear cataract, right eye; E11.9 Type 2 diabetes mellitus without complications; Z20.822 Contact with and (suspected) exposure to COVID-19 ==

== ENCOUNTER 2021-06-25 06:05 | Day surgery (SDC) | payer OTHER ==
[2021-06-25] MEDS ORDERED: CYCLOPENTOLATE 1% OPHTH DROPS 2 ML ONE (06:19)
[2021-06-25] MEDS ORDERED: PHENYLEPHRINE 2.5% OPHTH 2 ML DROPS ONE (06:19)
[2021-06-25] MEDS ORDERED: PROPARACAINE 0.5% OPHTH DROPS 15 ML ONE ×2 (06:19→06:20)
[2021-06-25] MEDS ORDERED: KETOROLAC 0.45% OPHTH DROPS ONE (06:19)
[2021-06-25] MEDS ORDERED: LACTATED RINGERS 1,000 ML IV ONE (06:26)
[2021-06-25] MEDS ORDERED: BRIMONIDINE 0.2% OPHTH DROPS 5 ML ONE (07:07)
[2021-06-25] MEDS ORDERED: EPINEPHrine 1 MG/ML AMP ONE (07:07)
[2021-06-25] MEDS ORDERED: TRIAMCIN/MOXIFLOX OPHTHALMIC 0.6 ML VIAL IO ONE ×2 (07:07→09:13)
[2021-06-25] MEDS ORDERED: BSS/LIDOCAINE/EPINEPHRINE 1 ML SYRINGE ONE (07:08)
[2021-06-25] MEDS ORDERED: TIMOLOL 0.5% OPHTH DROPS ONE (07:08)
[2021-06-25] MEDS ORDERED: VANCOMYCIN OPHTHALMI 8MG/0.8ML 8 MG/0.8 ML SYRINGE IO ONE ×2 (07:08→09:13)
--- NOTE | 2021-06-25 07:15 | ANESTHESIA ---
Pre-Anesthesia VS, & Labs - Diagnosis nuclear sclerotic cataract right eye - Procedure Right eye CATIOL Vital Signs: Temp Pulse Resp BP Pulse Ox 36.2 C L 70 16 145/103 H 96 06/25/21 06:27 06/25/21 06:27 06/25/21 06:27 06/25/21 06:27 06/25/21 06:27 Height: 6 ft 4 in Weight (kg): 105 kg Body Mass Index: 28.1 BMI Classification: Overweight - NPO >8 hours - Lab Results Lab results reviewed: Yes Home Medications and Allergies Gabapentin [Neurontin] 10 tab PO DAILY 08/24/15 Levothyroxine [Synthroid] 75 mcg PO DAILY 08/24/15 Pantoprazole [Protonix] 1 tab PO BID 08/24/15 Simvastatin 1 tab PO DAILY 08/24/15 Tamsulosin [Flomax] 1 tab PO DAILY 08/24/15 lisinopriL [Lisinopril] 1 tab PO DAILY 08/24/15 Sildenafil Citrate 100 mg PO DAILY PRN 06/11/21 Allergies/Adverse Reactions: Allergies Allergy/AdvReac Type Severity Reaction Status Date / Time codeine Allergy Rash Verified 06/11/21 10:29 ibuprofen Allergy Edema Verified 06/11/21 10:29 Anes History & Medical History - Anesthetic History Anesthesia Complications: reports: No previous complications Family history of Anesthesia Complications: Denies Family history of Malignant Hyperthermia: Denies - Medical History Cardiovascular: reports: Hypertension, High cholesterol Gastrointestinal: reports: GERD Urinary: reports: Retention Endocrine/Autoimmune: reports: HyPOthyroidism Smoking Status: Never smoker Exam General: Alert, Oriented x3, Cooperative, No acute distress Dental: WNL Mouth Openin Fingerbreadth Neck Mobility: Normal Mallampati classification: II Respiratory: Lungs clear, Normal breath sounds, No respiratory distress, No accessory muscle use Cardiovascular: Regular rate, Normal S1, Normal S2, No murmurs Plan Anesthesia Type: MAC Consent for Procedure(s) Verified and Reviewed: Yes Code Status: Attempt Resuscitation ASA classification: 2-Mild systemic disease Is this case an emergency?: No
[2021-06-25] MEDS ORDERED: MIDAZOLAM 2 MG/2 ML VIAL ONE (07:25)
[2021-06-25] MEDS ORDERED: LACTATED RINGERS 500 ML IV ONE (07:58)
--- NOTE | 2021-06-25 08:34 | ANESTHESIA POST OP EVALUATION ---
Anesthesia Post Eval - Post Anesthesia Eval Vitals: Last Vital Signs Temp 35.8 C L 06/25/21 07:59 Pulse 85 06/25/21 08:17 Resp 15 06/25/21 08:17 BP 133/93 H 06/25/21 08:17 Pulse Ox 94 06/25/21 08:17 CV Function Including HR & BP: Stable Pain Control: Satisfactory Nausea & Vomiting: Negative Mental Status: Baseline Respiratory Status: Airway Patent Hydration Status: Satisfactory Anesthesia Complications: None
[2021-06-25 08:56] VITALS: BP 145/92
[2021-06-25] MEDS ORDERED: CHONDR SULF/HYALURONATE SYRINGE IO ONE (09:12)
[2021-06-25] MEDS ORDERED: TIMOLOL 0.5% OPHTH DROPS OPTH ONE (09:12)
[2021-06-25] MEDS ORDERED: EPINEPHrine 1 MG/ML AMP IR ONE (09:12)
[2021-06-25] MEDS ORDERED: BRIMONIDINE 0.2% OPHTH DROPS 5 ML OPTH ONE (09:12)
[2021-06-25] MEDS ORDERED: PROPARACAINE 0.5% OPHTH DROPS 15 ML EACHEYE ONE (09:13)
[2021-06-25] MEDS ORDERED: BSS/LIDOCAINE/EPINEPHRINE 1 ML SYRINGE IO ONE (09:13)
--- NOTE | 2021-06-25 09:26 | OPERATIVE REPORT ---
Operative Report - Other Other Information/Narrative: Date of Surgery: 06/25/21 Preop Dx: Complex, visually significant cataract right eye. Complex due to small pupil requiring mechanical dilation using a Malyugin ring. This was the first cataract surgery. Postop Dx: Same Procedure: Phacoemulsification with posterior chamber intraocular lens implant right eye Surgeon: Dr. Tarik Appiah Anesthesia: Monitored anesthesia care Complications: None Operative Indications: This is a 71-year-old M with progressive vision loss in the right eye due to 3+ nuclear sclerotic cataract. Best corrected visual acuity was 20/20 with glare to 20/100 vision in the right eye. Indications for surgery were: - Overall decrease in vision - Difficulty seeing words on a computer screen - Difficulty reading - Difficulty seeing words, closed captions, or game scores on TV - Difficulty seeing street signs - Difficulty driving at night because of headlights from other vehicles - Difficulty with glare or bright lights in any situation The patient was consented at length concerning the risks and benefits of cataract surgery after which the patient expressed a desire to proceed with surgery. Operative Procedure: The patient was taken into OR#3 and placed under monitored anesthesia care. A surgical time-out was conducted confirming correct patient, correct procedure, and correct surgical site. The patient was given topical anesthesia and then prepped and draped in the usual sterile fashion. The eye was entered at the 6 and 3 oclock positions. Intracameral Shugarcaine was injected into the anterior chamber followed by a dispersive viscoelastic. A Malyugin ring was injected into the anterior chamber and engaged with the pupillary margin at four points to expand the pupil. A continuous-tear curvilinear capsulorhexis was performed. The nucleus was hydrodissected and phacoemulsified. The cortex was evacuated using automated infusion and aspiration. A cohesive viscoelastic was injected into the capsular bag and a 23.5 diopter intraocular lens was inserted into the bag. The Malyugin ring was disengaged from the pupillary margin and removed from the anterior chamber. Infusion and aspiration were used to evacuate the viscoelastic materials from the eye. The wounds were hydrated and the eye inflated to physiologic pressure using balanced salt solution. Approximately 0.25ml of a mixture of triamcinolone and moxifloxacin was injected trans-sclerally into the vitreous in the inferotemporal quadrant using a 30 gauge cannula. An additional 0.55ml of a mixture of triamcinolone, moxifloxacin, and vancomycin was injected subconjunctivally in the superior quadrant for infection and inflammation prophylaxis. Wound integrity was checked with Weck-Aparna sponges. The patient was taken from the operating room in good condition and given post-op instructions.
== END 2021-06-25 06:06 | disposition home or self-care (01) ==
LOC: SDS 06:05
PROVIDERS: ATTEND Ophthalmology
DX: E11.36 Type 2 diabetes mellitus with diabetic cataract (principal); H25.11 Age-related nuclear cataract, right eye; H18.513 Endothelial corneal dystrophy, bilateral; N40.0 Benign prostatic hyperplasia without lower urinary tract symptoms; Z79.899 Other long term (current) drug therapy; Z87.891 Personal history of nicotine dependence; E03.9 Hypothyroidism, unspecified
CPT/HCPCS: 66984; A9270; J3490; J7120

== ENCOUNTER 2021-07-31 16:10 | Outpatient (CLI) | payer OTHER | END 2021-07-31 16:11 | disposition home or self-care (01) | LOC: COV 16:10 | PROVIDERS: ATTEND Ophthalmology | DX: Z01.812 Encounter for preprocedural laboratory examination (principal); H25.12 Age-related nuclear cataract, left eye; E11.9 Type 2 diabetes mellitus without complications; Z20.822 Contact with and (suspected) exposure to COVID-19 ==

== ENCOUNTER 2021-08-06 06:02 | Day surgery (SDC) | payer OTHER ==
[2021-08-06] MEDS ORDERED: CYCLOPENTOLATE 1% OPHTH DROPS 2 ML ONE (06:19)
[2021-08-06] MEDS ORDERED: PHENYLEPHRINE 2.5% OPHTH 2 ML DROPS ONE (06:19)
[2021-08-06] MEDS ORDERED: KETOROLAC 0.45% OPHTH DROPS ONE (06:19)
[2021-08-06] MEDS ORDERED: PROPARACAINE 0.5% OPHTH DROPS 15 ML ONE (06:19)
[2021-08-06] MEDS ORDERED: LACTATED RINGERS 1,000 ML IV ONE ×2 (06:19→07:56)
[2021-08-06] MEDS ORDERED: TRIAMCIN/MOXIFLOX OPHTHALMIC 0.6 ML VIAL IO ONE ×2 (06:59→07:33)
[2021-08-06] MEDS ORDERED: TIMOLOL 0.5% OPHTH DROPS ONE (07:00)
[2021-08-06] MEDS ORDERED: BRIMONIDINE 0.2% OPHTH DROPS 5 ML ONE (07:00)
[2021-08-06] MEDS ORDERED: EPINEPHrine 1 MG/ML AMP ONE (07:00)
[2021-08-06] MEDS ORDERED: BSS/LIDOCAINE/EPINEPHRINE 1 ML SYRINGE ONE (07:01)
[2021-08-06] MEDS ORDERED: VANCOMYCIN OPHTHALMI 8MG/0.8ML 8 MG/0.8 ML SYRINGE IO ONE ×2 (07:01→07:34)
--- NOTE | 2021-08-06 07:17 | ANESTHESIA ---
Pre-Anesthesia VS, & Labs - Diagnosis L nuclear sclerotic cataract - Procedure L extraction cataract w/IOL Vital Signs: Temp Pulse Resp BP Pulse Ox 36.2 C L 67 14 175/96 H 99 08/06/21 06:26 08/06/21 06:26 08/06/21 06:26 08/06/21 06:26 08/06/21 06:26 Height: 6 ft 3 in Weight (kg): 106 kg Body Mass Index: 29.2 BMI Classification: Overweight - NPO >8 hours - Lab Results Current Lab Results: Laboratory Tests 08/06/21 06:43: POC Whole Bld Glucose 91 Lab results reviewed: Yes Home Medications and Allergies Gabapentin [Neurontin] 10 tab PO DAILY 08/24/15 Levothyroxine [Synthroid] 75 mcg PO DAILY 08/24/15 Pantoprazole [Protonix] 1 tab PO BID 08/24/15 Simvastatin 1 tab PO DAILY 08/24/15 Tamsulosin [Flomax] 1 tab PO DAILY 08/24/15 lisinopriL [Lisinopril] 1 tab PO DAILY 08/24/15 Sildenafil Citrate 100 mg PO DAILY PRN 06/11/21 Allergies/Adverse Reactions: Allergies Allergy/AdvReac Type Severity Reaction Status Date / Time codeine Allergy Rash Verified 06/11/21 10:29 ibuprofen Allergy Edema Verified 06/11/21 10:29 Anes History & Medical History - Anesthetic History Anesthesia Complications: reports: No previous complications Family history of Anesthesia Complications: Denies Family history of Malignant Hyperthermia: Denies - Medical History Cardiovascular: reports: Hypertension, High cholesterol Gastrointestinal: reports: GERD Urinary: reports: Retention Endocrine/Autoimmune: reports: HyPOthyroidism Smoking Status: Never smoker - Surgical History Eyes Ears Nose Throat (EENT): reports: Cataracts Orthopedic: reports: Other Exam General: Alert, Oriented x3, Cooperative Neck Mobility: Normal Mallampati classification: II Thyromental Distance: 4-6 cm Respiratory: Lungs clear, Normal breath sounds, No respiratory distress Cardiovascular: Regular rate Neurological: Normal speech Mental/Cognitive Status: Alert/Oriented X3, Normal for patient Cognitive Status: Within normal limits Plan Anesthesia Type: MAC Consent for Procedure(s) Verified and Reviewed: Yes Code Status: Attempt Resuscitation ASA classification: 2-Mild systemic disease Is this case an emergency?: No
[2021-08-06] MEDS ORDERED: MIDAZOLAM 2 MG/2 ML VIAL ONE (07:28)
[2021-08-06] MEDS ORDERED: EPINEPHrine 1 MG/ML AMP IR ONE (07:32)
[2021-08-06] MEDS ORDERED: BRIMONIDINE 0.2% OPHTH DROPS 5 ML OPTH ONE (07:32)
[2021-08-06] MEDS ORDERED: TIMOLOL 0.5% OPHTH DROPS OPTH ONE (07:32)
[2021-08-06] MEDS ORDERED: CHONDR SULF/HYALURONATE SYRINGE IO ONE (07:32)
[2021-08-06] MEDS ORDERED: BSS/LIDOCAINE/EPINEPHRINE 1 ML SYRINGE IO ONE (07:33)
[2021-08-06] MEDS ORDERED: PROPARACAINE 0.5% OPHTH DROPS 15 ML EACHEYE ONE (07:33)
[2021-08-06] MEDS ORDERED: fentaNYL 100 MCG/2 ML VIAL ONE (07:43)
[2021-08-06 08:00] VITALS: BP 139/99
--- NOTE | 2021-08-06 08:14 | ANESTHESIA POST OP EVALUATION ---
Anesthesia Post Eval - Post Anesthesia Eval Vitals: Last Vital Signs Temp 36.3 C L 08/06/21 07:54 Pulse 70 08/06/21 07:54 Resp 16 08/06/21 07:54 BP 139/99 H 08/06/21 07:54 Pulse Ox 98 08/06/21 07:54 CV Function Including HR & BP: Stable Pain Control: Satisfactory Nausea & Vomiting: Negative Mental Status: Baseline Respiratory Status: Airway Patent Hydration Status: Satisfactory Anesthesia Complications: None
--- NOTE | 2021-08-06 08:40 | OPERATIVE REPORT ---
Operative Report - Other Other Information/Narrative: Date of Surgery: Preop Dx: Complex, visually significant cataract left eye. Complex due to small pupil requiring mechanical dilation using a Malyugin ring. Cataract surgery was performed in the right eye on . Postop Dx: Same Procedure: Phacoemulsification with posterior chamber intraocular lens implant left eye Surgeon: Dr. 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 Best corrected visual acuity was 20/20 with glare to 20/80 vision in the left eye. Indications for surgery were: - Overall decrease in vision - Difficulty seeing words on a computer screen - Difficulty reading - Difficulty seeing words, closed captions, or game scores on TV - Difficulty seeing street signs - Difficulty driving in low light or at night - Difficulty driving at night because of headlights from other vehicles - Difficulty with glare or bright lights in any situation - Difficulty tracking a golf ball - Decreased acuity with firearms The patient was consented at length concerning the risks and benefits of cataract surgery after which the patient expressed a desire to proceed with surgery. Operative Procedure: The patient was taken into OR#3 and placed under monitored anesthesia care. A surgical time-out was conducted confirming correct patient, correct procedure, and correct surgical site. The patient was given topical anesthesia and then prepped and draped in the usual sterile fashion. The eye was entered at the 6 and 3 oclock positions. Intracameral Shugarcaine was inje cted into the anterior chamber followed by a dispersive viscoelastic. A Malyugin ring was injected into the anterior chamber and engaged with the pupillary margin at four points to expand the pupil. A continuous-tear curvilinear capsulorhexis was performed. The nucleus was hydrodissected and phacoemulsified. The cortex was evacuated using automated infusion and aspiration. A cohesive viscoelastic was injected into the capsular bag and a 23.5 diopter intraocular lens was inserted into the bag. The Malyugin ring was disengaged from the pupillary margin and removed from the anterior chamber. Infusion and aspiration were used to evacuate the viscoelastic materials from the eye. The wounds were hydrated and the eye inflated to physiologic pressure using balanced salt solution. Approximately 0.25ml of a mixture of triamcinolone and moxifloxacin was injected trans-sclerally into the vitreous in the inferotemporal quadrant using a 30 gauge cannula. An additional 0.55ml of a mixture of triamcinolone, moxifloxacin, and vancomycin was injected subconjunctivally in the superior quadrant for infection and inflammation prophylaxis. Wound integrity was checked with Weck-Aparna sponges. The patient was taken from the operating room in good condition and given post-op instructions.
== END 2021-08-06 06:03 | disposition home or self-care (01) ==
LOC: SDS 06:02
PROVIDERS: ATTEND Ophthalmology
DX: E11.36 Type 2 diabetes mellitus with diabetic cataract (principal); H25.12 Age-related nuclear cataract, left eye; Z98.41 Cataract extraction status, right eye; E03.9 Hypothyroidism, unspecified; Z79.899 Other long term (current) drug therapy
CPT/HCPCS: 66982; A9270; J3490; J7120

== ENCOUNTER 2022-01-12 10:41 | Outpatient (CLI) | payer OTHER ==
--- NOTE | 2022-01-12 16:45 | Ultrasound Report ---
PROCEDURE: Head or Neck Soft Tissue INDICATIONS: NECK MASS TECHNIQUE: Real time scanning was performed of the neck region of interest, with image documentation . COMPARISON: None. FINDINGS: No soft tissue neck abnormality seen bilaterally the patient's, compatible mass correspon ds to a normal-appearing submandibular gland. IMPRESSION: The clinically palpable abnormality as denoted by the patient corresponds to a normal-appearing subma ndibular gland. Reviewed by: Mario Vang MD on 01/12/2022 4:44 PM PST Approved by: Mario Vang MD on 01/12/2022 4:44 PM PST Station ID: [id number]
== END 2022-01-12 10:42 | disposition home or self-care (01) ==
LOC: DI 10:41
PROVIDERS: ATTEND Internal Medicine
DX: R22.1 Localized swelling, mass and lump, neck (principal)

== ENCOUNTER → 2022-08-24 | Outpatient (CLI) | payer OTHER | END | disposition short-term general hospital (02) | LOC: EMS 18:40 | DX: R07.89 Other chest pain (principal); I95.9 Hypotension, unspecified; R61 Generalized hyperhidrosis; R11.0 Nausea | CPT/HCPCS: A0425; A0427 ==

== ENCOUNTER 2022-12-23 07:22 | Outpatient (CLI) | payer OTHER ==
[2022-12-23 14:48] LABS: CHOL/HDL RATIO 2.8 (<5.0); CHOLESTEROL 115 mg/dL; HDL CHOLESTEROL 41 mg/dL; LDL CHOLESTEROL,CALCULATED 54 mg/dL; LDL/HDL RATIO 1.3 (<3.6); TRIGLYCERIDES 99 mg/dL; VLDL CHOLESTEROL 20 mg/dL
== END 2022-12-23 07:23 | disposition home or self-care (01) ==
LOC: LAB.S 07:22
PROVIDERS: ATTEND Internal Medicine Cardiovascular Disease
DX: I25.2 Old myocardial infarction (principal)
CPT/HCPCS: 36415; 80061; 83721